=== PATIENT | female | born 1940 | race Caucasian/White ===

== ENCOUNTER → 2017-07-29 10:41 | Outpatient (CLI) | payer MEDICARE, OTHER, SELFPAY ==
--- NOTE | 2017-07-29 10:46 | MM_ITS ---
. MM Dig screening mamm BI w/CAD CAD Screening ORDERING PHYSICIAN : Des Chan MD PATIENT AGE: 77 years GENDER: Female COMPARISON: Previous mammograms: October 2014,. May 2016 INDICATION: No hormones no new complaints previous needle biopsy left breast Family history. Mother with breast cancer. TECHNIQUE: Standard CC and MLO images were obtained. R2 CAD reviewed. FINDINGS: Minimal fibroglandular elements bilaterally to the lower density breast. Prior films are helpful and supportive stability with no dominant mass nor suspicious calcifications of significant concern no significant change. Mole markers placed bilaterally Right breast.: Unremarkable Left breast. The metallic clip at the lateral left breast from previous stereotactic biopsy is again noted. Minimal nodularity just lateral to this is stable and unchanged 2014 likely small intramammary node. The generous size benign appearing fatty containing axillary lymph nodes bilaterally appears similar to previous studies ... IMPRESSION: ... Stable bilateral mammogram.... No significant new findings either breast Follow-up in one year recommended BI-RADS Category: 1 Negative RECOMMENDED FOLLOW-UP: 1YR - 1 YEAR FOLLOW-UP (A letter has been sent to the patient regarding results of the study.)
== END ==
PROVIDERS: PCP Nurse Practitioner Family; Visit Provider Internal Medicine Adolescent Medicine
DX: Z12.31 Encounter for screening mammogram for malignant neoplasm of breast (principal)
CPT/HCPCS: 77067

== ENCOUNTER → 2017-12-16 08:16 | Outpatient (CLI) | payer MEDICARE, OTHER, SELFPAY ==
[2017-12-16 08:44] LABS: Hemoglobin A1C 6.3 % (0.0-7.0)
[2017-12-16 09:42] LABS: Alanine Aminotransferase 44 U/L (12-78); Albumin Level 3.4 gm/dL (3.4-5.0); Albumin/Globulin Ratio 1.4 (1.1-1.8); Alkaline Phosphatase 76 U/L (46-116); Aspartate Amino Transferase 18 U/L (15-37); Bilirubin,Total 0.7 mg/dL (0.2-1.0); Blood Urea Nitrogen 10 mg/dL (7-18); Calcium 8.9 mg/dL (8.5-10.1); Carbon Dioxide 31 mmol/L (21.0-32.0); Chol/HDL Ratio 2.6 (1-3.5); Cholesterol 155 mg/dL (140-200); Creatinine,Serum 0.74 mg/dL (0.55-1.02); Estimated Glomerular Filt Rate 76 ml/min (>60); GFR (African American) 92 ML/MIN (>60); Globulin 2.5 gm/dl (1.3-3.2); Glucose 119 mg/dL (74-106); HDL Cholesterol 59 mg/dL (29-89); LDL Cholesterol 73 mg/dL (0-130); Total Protein,Serum 5.9 gm/dL (6.4-8.2); Triglycerides 117 mg/dL (30-200); VLDL Cholesterol 23 mg/dL (0-40)
[2017-12-16 14:58] LABS: Anion Gap 7.5 mEq/L (5-15); Chloride 109 mmol/L (98-107); Potassium 4.5 mmoL/L (3.5-5.1); Sodium 143 mmol/L (136-145)
[2017-12-18 07:50] LABS: Vitamin D 25 Hydroxy 31.6 ng/mL (30.0-100.0)
== END ==
PROVIDERS: PCP Nurse Practitioner Family; Visit Provider Nurse Practitioner Family
DX: R73.9 Hyperglycemia, unspecified (principal); E78.1 Pure hyperglyceridemia; M85.80 Other specified disorders of bone density and structure, unspecified site
CPT/HCPCS: 36415; 80053; 80061; 82652; 83036

== ENCOUNTER → 2018-07-31 10:07 | Outpatient (CLI) | payer MEDICARE, OTHER, SELFPAY ==
--- NOTE | 2018-07-31 10:10 | MM_ITS ---
MM Dig screening mamm BI w/CAD ORDERING PHYSICIAN : Alecia Knight APRN PATIENT AGE: 78 years GENDER: Female COMPARISON: Bilateral digital mammogram June 2017, October 2014Mar2016. Left mammogram May 2015. INDICATION: Routine screening mammogram. No hormones. No new complaints. Previous breast biopsy on left. Family history.: Mother with breast cancer. TECHNIQUE: Standard CC and MLO images were obtained. R2 CAD reviewed. FINDINGS: Minimal residual fibroglandular elements. Low-density breast, moderate generalized fatty replacement . No dominant mass no suspicious mass. No suspicious calcifications. RIGHT BREAST: No new areas concern LEFT BREAST:No new areas of concern. Metallic marker clip from previous percutaneous biopsy again noted upper outer quadrant left breast Skin mole markers of the left again noted but no new findings. IMPRESSION: Stable bilateral mammogram, with no new areas of concern. . Follow-up in one year recommended Lower density breast. Minimal fibroglandular elements BI-RADS Category: 1 Negative RECOMMENDED FOLLOW-UP: 1YR 1 YEAR FOLLOW-UP (A letter has been sent to the patient regarding results of the study.)
--- NOTE | 2018-07-31 10:12 | CI_ITS ---
Cerebrovascular Exam IMPRESSIONS 1. The bilateral vertebral arteries are patent with normal antegrade flow. 2. Study suggests 20-49%, 50-69% stenosis involving the right internal carotid artery. 3. Study suggests 20-49% stenosis involving the left internal carotid artery. No change from the study of 05-Jan-2016. Carotid duplex study. Complete study and Doppler flow study including spectral analysis, color and jang scale imaging. Location: Vascular laboratory. Patient status: Outpatient. Tables: Arterial flow: + +--------+--------+ Location V s V ed + +--------+--------+ Right CCA - proximal 99.8cm/s 16.5cm/s + +--------+--------+ Right CCA - distal 90.4cm/s 20.4cm/s + +--------+--------+ Right ECA 128cm/s -------- + +--------+--------+ Right ICA - proximal 123cm/s 29.5cm/s + +--------+--------+ Right ICA - mid 124cm/s 27.4cm/s + +--------+--------+ Right ICA - distal 70.7cm/s 24.4cm/s + +--------+--------+ Right vertebral 53.4cm/s -------- + +--------+--------+ Left CCA - proximal 114cm/s 25.1cm/s + +--------+--------+ Left CCA - distal 105cm/s 25.9cm/s + +--------+--------+ Left ECA 92.9cm/s -------- + +--------+--------+ Left ICA - proximal 97.4cm/s 25.1cm/s + +--------+--------+ Left ICA - mid 83.6cm/s 27.4cm/s + +--------+--------+ Left ICA - distal 77.8cm/s 23.6cm/s + +--------+--------+ Left vertebral 49cm/s -------- + +--------+--------+ Velocity ratios: + + + + + + Right, V sys Right, V ed Left, V sys Left, V ed + + + + + + Max ICA/dist CCA 1.37 1.45 0.93 1.06 + + + + + + (Report amended ) Electronically signed by: Ever Christine [id number]
== END ==
PROVIDERS: PCP Nurse Practitioner Family; Visit Provider Nurse Practitioner Family
DX: Z12.31 Encounter for screening mammogram for malignant neoplasm of breast (principal); I65.23 Occlusion and stenosis of bilateral carotid arteries; M85.89 Other specified disorders of bone density and structure, multiple sites
CPT/HCPCS: 77067; 93880

== ENCOUNTER → 2018-08-04 08:16 | Outpatient (CLI) | payer MEDICARE, OTHER, SELFPAY ==
--- NOTE | 2018-08-04 08:24 | XR_ITS ---
XR DEXA axial skeleton HISTORY: ITS.REASON: OSTEOPENIA ORDERING PHYSICIAN: Alecia Knight APRN PATIENT AGE: 78 years COMPARISON: 06/04/2016 FINDINGS: The BMD measured at the Total right femoral neck is 0.808 g/cm squared with a T score of -1.6. This is considered Osteopenic according to the World Health Organization criteria. Fracture risk is Moderate. Treatment is advised. L1 L4 density has a T score of -0.5. This is increased by 3.6%. Hip density has increased by 1% IMPRESSION: Osteopenia with moderate fracture risk. Treatment is advised. Suggest follow-up exam July 2020
[2018-08-04 09:11] LABS: Hemoglobin A1C 6.1 % (0.0-7.0)
[2018-08-04 09:37] LABS: Alanine Aminotransferase 38 U/L (12-78); Albumin Level 3.5 gm/dL (3.4-5.0); Albumin/Globulin Ratio 1.2 (1.1-1.8); Alkaline Phosphatase 84 U/L (46-116); Anion Gap 11.5 mEq/L (5-15); Aspartate Amino Transferase 18 U/L (15-37); Bilirubin,Total 0.5 mg/dL (0.2-1.0); Blood Urea Nitrogen 14 mg/dL (7-18); Calcium 9.2 mg/dL (8.5-10.1); Carbon Dioxide 29 mmol/L (21.0-32.0); Chloride 106 mmol/L (98-107); Chol/HDL Ratio 3.5 (1-3.5); Cholesterol 191 mg/dL (140-200); Creatinine,Serum 0.79 mg/dL (0.55-1.02); Estimated Glomerular Filt Rate 70 ml/min (>60); GFR (African American) 85 ML/MIN (>60); Globulin 2.9 gm/dl (1.3-3.2); Glucose 103 mg/dL (74-106); HDL Cholesterol 54 mg/dL (29-89); LDL Cholesterol 120 mg/dL (0-130); Potassium 4.5 mmoL/L (3.5-5.1); Sodium 142 mmol/L (136-145); Total Protein,Serum 6.4 gm/dL (6.4-8.2); Triglycerides 87 mg/dL (30-200); VLDL Cholesterol 17 mg/dL (0-40)
== END ==
PROVIDERS: Visit Provider Nurse Practitioner Family
DX: R73.03 Prediabetes (principal); E78.1 Pure hyperglyceridemia; M85.89 Other specified disorders of bone density and structure, multiple sites; I65.23 Occlusion and stenosis of bilateral carotid arteries; Z12.31 Encounter for screening mammogram for malignant neoplasm of breast
CPT/HCPCS: 36415; 77080; 80053; 80061; 83036

== ENCOUNTER → 2019-08-03 09:11 | Outpatient (CLI) | payer MEDICARE, OTHER, SELFPAY ==
--- NOTE | 2019-08-03 09:22 | MM_ITS ---
PROCEDURE: MM DIG SCREENING MAMM BI W/CAD Digital Breast Tomosynthesis Included CLINICAL INDICATION: SCREENING ANNUAL There is a history of breast cancer in the patient's mother. There is a previous biopsy left breast for benign disease. COMPARISON: [facility] DIG MAMM-SCREEN RAFA W/CAD from 06/04/2016 [facility] MM Dig screening mamm BI w/CAD from 07/29/2017 DIG MAMM-SCREEN RAFA from 07/31/2018 TECHNIQUE: Standard CC and MLO images and 3D Tomosynthesis was obtained. R2 CAD reviewed. FINDINGS: Scattered fibroglandular densities are seen throughout both breasts. There are mole markers on each breast. There are tiny benign appearing nodular densities near the axillary tail right breast which are stable. There is a biopsy clip left breast. There is a benign-appearing calcification left breast. There is no suspicious lesion and no suspicious microcalcifications. There are fatty replaced nodes in both axilla. IMPRESSION: Fibrofatty parenchyma with no suspicious lesions seen BI-RAD Category: 2 Benign Finding(s) FOLLOW-UP: 1YR 1 Year Follow-up (A letter has been sent to the patient regarding results of the study.) Dictated by: Dr. Arsalan Zelaya MD 08/04/2019 15:[address] Arsalan Zelaya MD in [place] 08/04/2019 15:43
== END ==
PROVIDERS: PCP Nurse Practitioner Family; Visit Provider Nurse Practitioner Family
DX: Z12.31 Encounter for screening mammogram for malignant neoplasm of breast (principal)
CPT/HCPCS: 77063; 77067

== ENCOUNTER → 2019-08-13 09:52 | Outpatient (POV) | payer MEDICARE, OTHER, SELFPAY | PROVIDERS: PCP Audiologist; Visit Provider Audiologist | DX: Z00.00 Encounter for general adult medical examination without abnormal findings (principal) ==

== ENCOUNTER → 2020-07-07 09:03 | Outpatient (POV) | payer MEDICARE, OTHER, SELFPAY | PROVIDERS: Visit Provider Audiologist | DX: Z00.00 Encounter for general adult medical examination without abnormal findings (principal) ==

== ENCOUNTER → 2020-08-12 09:10 | Outpatient (CLI) | payer MEDICARE, OTHER, SELFPAY ==
--- NOTE | 2020-08-12 09:14 | MM_ITS ---
PROCEDURE INFORMATION: Exam: MG Screening 3D Mammography Exam date and time: 08/12/2020 9:14 AM Age: 80 years old Clinical indication: Encounter for screening mammogram for malignant neoplasm of breast . Family history of breast carcinoma TECHNIQUE: Imaging protocol: Screening tomosynthesis and 2D mammography including computer-aided detection (CAD) when performed. COMPARISON: 1. MG MM DIG SCREENING MAMM BI W/CAD 08/03/2019 9:34 AM 2. MG DIG MAMM-SCREEN RAFA 07/31/2018 10:55 AM 3. MG [facility] MM Dig screening mamm BI w/CAD 07/29/2017 11:06 AM 4. MG [facility] DIG MAMM-SCREEN RAFA W/CAD 06/04/2016 9:06 AM FINDINGS: MAMMOGRAPHY: Breast composition: There are scattered areas of fibroglandular density. Mass: No new suspicious masses. Architectural distortion: No suspicious distortion. Calcifications: No suspicious calcifications. Asymmetric density: None. Skin thickening: None. Axillary adenopathy: None. IMPRESSION: No mammographic evidence of malignancy. Annual screening is recommended unless otherwise clinically indicated. ASSESSMENT: BI-RADS Category 1: Negative
== END ==
PROVIDERS: PCP Nurse Practitioner Family; Visit Provider Nurse Practitioner Family
DX: Z12.31 Encounter for screening mammogram for malignant neoplasm of breast (principal)
CPT/HCPCS: 77063; 77067

== ENCOUNTER → 2021-04-13 11:02 | Outpatient (CLI) | payer MEDICARE, OTHER, SELFPAY ==
[2021-04-13 11:48] LABS: Chloride 103 mmol/L (98-107); Potassium 4.5 mmoL/L (3.5-5.1); Sodium 140 mmol/L (136-145)
[2021-04-13 11:50] LABS: Blood Urea Nitrogen 14 mg/dl (7-17); Estimated Glomerular Filt Rate 69 ml/min (>60); GFR (African American) 83 ML/MIN (>60)
[2021-04-13 11:51] LABS: Alanine Aminotransferase 31 U/L (12-78); Albumin/Globulin Ratio 1.7 (1.1-1.8); Alkaline Phosphatase 83 U/L (38-126); Anion Gap 9.5 mEq/L (5-15); Aspartate Amino Transferase 33 U/L (14-36); Bilirubin,Total 0.7 mg/dl (0.2-1.3); Calcium 9.5 mg/dl (8.4-10.2); Carbon Dioxide 32 mmol/L (22.0-30.0); Cholesterol 232 mg/dl (140-200); Globulin 2.4 g/dL (1.3-3.2); Glucose 110 mg/dl (74-100); Total Protein,Serum 6.4 g/dl (6.3-8.2); Triglycerides 138 mg/dl (30-150); VLDL Cholesterol 28 mg/dL (0-40)
[2021-04-13 11:52] LABS: Chol/HDL Ratio 4.6 (1-3.5); HDL Cholesterol 50 mg/dl (40-60)
[2021-04-13 12:02] LABS: Direct LDL Cholesterol 146.19 mg/dL (100-129)
[2021-04-13 12:09] LABS: 25-OH Vitamin D, Total 14.1 ng/mL (30-100)
[2021-04-13 15:11] LABS: Hemoglobin A1C 6.1 % (4.0-6.0)
== END ==
PROVIDERS: Visit Provider Nurse Practitioner Family
DX: I65.23 Occlusion and stenosis of bilateral carotid arteries (principal); E78.1 Pure hyperglyceridemia; R73.03 Prediabetes; M85.89 Other specified disorders of bone density and structure, multiple sites
CPT/HCPCS: 36415; 80053; 80061; 82306; 83036

== ENCOUNTER → 2021-08-15 07:59 | Outpatient (CLI) | payer MEDICARE, OTHER, SELFPAY ==
--- NOTE | 2021-08-15 | CA_ITS ---
FINAL REPORT TECHNIQUE: Color Doppler, duplex Doppler and jang scale sonography of the bilateral neck arterial vasculature was performed. Velocities were measured in the carotid arteries. Stenosis evaluation based on the validated velocity criteria. CLINICAL HISTORY: HTN, HLD FINDINGS: The peak systolic velocity of the right common carotid artery is 103 cm/s. The peak systolic velocity of the right internal carotid artery is 162 cm/s and end diastolic velocity 41 cm/s. A small amount of plaque is present. The right external carotid artery is patent. The right vertebral artery is patent with antegrade flow. ICA/CCA ration: 1.8 The peak systolic velocity of the left common carotid artery is 113 cm/s. The peak systolic velocity of the left internal carotid artery is 124 cm/s and end diastolic velocity 32 cm/s. A small amount of plaque is present. The left external carotid artery is patent.The left vertebral artery is patent with antegrade flow. ICA/CCA ration: 1.5 IMPRESSION: Less than 50% bilateral carotid stenoses. Bilateral patent vertebral arteries with antegrade flow. If indicated, CTA or MRA could further evaluate. Reviewed, Interpreted and Dictated by Luis Fernando Meza III, MD Transcribed by Gerardo Manzo Authenticated by Luis Fernando Meza III, MD on 08/15/2021 01:36:05 PM [facility]
--- NOTE | 2021-08-15 08:03 | MM_ITS ---
PROCEDURE INFORMATION: Exam: MG Bilateral Screening 3D Mammography Exam date and time: 08/15/2021 8:31 AM Age: 81 years old Clinical indication: Screening examination TECHNIQUE: Imaging protocol: Bilateral Screening tomosynthesis and 2D mammography including computer-aided detection (CAD) when performed. COMPARISON: 1. MG MM DIG SCREENING MAMM BI W/CAD 08/12/2020 9:25 AM 2. MG MM DIG SCREENING MAMM BI W/CAD 08/03/2019 9:34 AM FINDINGS: MAMMOGRAPHY: Breast composition: There are scattered areas of fibroglandular density. Mass: None. Architectural distortion: None. Calcifications: No suspicious calcifications. Asymmetric density: None. Skin thickening: None. Axillary adenopathy: None. IMPRESSION: No mammographic evidence of malignancy. Annual screening is recommended unless otherwise clinically indicated. ASSESSMENT: BI-RADS Category 1: Negative
--- NOTE | 2021-08-15 08:03 | XR_ITS ---
FINAL REPORT TECHNIQUE: Bone mineral density was calculated of the lumbar spine and hip. CLINICAL HISTORY: post menopausal FINDINGS: Using L1-4, the bone mineral density of the spine is 0.944 g/cm2, corresponding to T-score of -0.9. Using the left hip, the bone mineral density of the femoral neck is 0.660 g/cm2, corresponding to a T-score of -1.7. NOTE: T-score: Standard deviation compared with peak bone mass of young adult mean. *Following the recommendations of the International Society of Bone densitometry, classification of hip BMD is based on the lower of two T-scores; total hip or femoral neck. IMPRESSION: Diminished bone mineral density of the left hip consistent with osteopenia. Normal bone mineral density of the lumbar spine. FRAX data: 10 year fracture risk for major osteoporotic fracture is 19% Reviewed, Interpreted and Dictated by Luis Fernando Meza III, MD Transcribed by Gerardo Manzo Authenticated by Luis Fernando Meza III, MD on 08/16/2021 08:06:51 AM [facility]
== END ==
PROVIDERS: PCP Nurse Practitioner Family; Visit Provider Nurse Practitioner Family
DX: Z12.31 Encounter for screening mammogram for malignant neoplasm of breast (principal); Z78.0 Asymptomatic menopausal state; I65.23 Occlusion and stenosis of bilateral carotid arteries
CPT/HCPCS: 77063; 77067; 77080; 93880

== ENCOUNTER 2022-01-23 10:28 | Day surgery (SDC) | payer MEDICARE, OTHER, SELFPAY ==
[2022-01-18 11:53] VITALS: BMI 35.9
[2022-01-23] VITALS (7 sets, daily range): BP systolic 116–156; BP diastolic 57–85; PULSE 51–57; RESP 16–20; TEMP 36.3–36.4; O2SAT 98–100
== END 2022-01-23 13:46 | disposition home or self-care (01) ==
LOC: OR 10:30
PROVIDERS: PCP Nurse Practitioner Family; Visit Provider Ophthalmology
DX: H25.813 Combined forms of age-related cataract, bilateral (principal); Z79.899 Other long term (current) drug therapy
CPT/HCPCS: 66984; V2632

== ENCOUNTER 2022-02-06 10:30 | Day surgery (SDC) | payer MEDICARE, OTHER, SELFPAY ==
[2022-02-01 13:51] VITALS: BMI 34.3
[2022-02-06] VITALS (7 sets, daily range): BP systolic 137–191; BP diastolic 64–77; PULSE 52–57; RESP 16–18; TEMP 36.1–36.3; O2SAT 100
== END 2022-02-06 13:48 | disposition home or self-care (01) ==
LOC: OR 10:31
PROVIDERS: PCP Nurse Practitioner Family; Visit Provider Ophthalmology
DX: H25.813 Combined forms of age-related cataract, bilateral (principal)
CPT/HCPCS: 66984; V2632

== ENCOUNTER → 2022-08-23 09:41 | Outpatient (CLI) | payer MEDICARE, OTHER, SELFPAY ==
--- NOTE | 2022-08-23 09:44 | MM_ITS ---
PROCEDURE INFORMATION: Exam: MG Bilateral Screening 3D Mammography Exam date and time: 08/23/2022 9:39 AM Age: 82 years old Clinical indication: Screening mammogram TECHNIQUE: Imaging protocol: Bilateral Screening tomosynthesis and 2D mammography including computer-aided detection (CAD) when performed. COMPARISON: 1. MG MM DIG SCREENING MAMM BI W/CAD 08/15/2021 8:31 AM 2. MG MM DIG SCREENING MAMM BI W/CAD 08/12/2020 9:25 AM 3. MG MM DIG SCREENING MAMM BI W/CAD 08/03/2019 9:34 AM 4. MG DIG MAMM-SCREEN RAFA 07/31/2018 10:55 AM FINDINGS: MAMMOGRAPHY: Breast composition: There are scattered areas of fibroglandular density. Mass: None. Architectural distortion: No new or suspicious architectural distortion. Calcifications: No new or suspicious calcifications are present Asymmetric density: No new or suspicious asymmetric density is present Skin thickening: None. Axillary adenopathy: None. IMPRESSION: No mammographic evidence of malignancy. Recommend annual screening mammography unless otherwise clinically indicated. ASSESSMENT: BI-RADS category 1: Negative
== END ==
PROVIDERS: PCP Nurse Practitioner Family; Visit Provider Nurse Practitioner Family
DX: Z12.31 Encounter for screening mammogram for malignant neoplasm of breast (principal)
CPT/HCPCS: 77063; 77067

== ENCOUNTER 2023-07-11 12:26 | Outpatient (CLI) | payer MEDICARE, OTHER, SELFPAY ==
--- NOTE | 2023-07-11 12:31 | XR_ITS ---
FINAL REPORT CLINICAL HISTORY: CONTUSION OF RT RING FINGER FINDINGS: Right hand Three views were obtained. There is no acute fracture or dislocation. There are mild degenerative changes. No soft tissue abnormality is identified. IMPRESSION: No acute process. Reviewed, Interpreted and Dictated by Luis Fernando Meza III, MD Transcribed by Mary Eugene Authenticated and [facility]
== END 2023-07-11 23:59 ==
LOC: RAD 12:28
PROVIDERS: PCP Nurse Practitioner Family; Visit Provider Nurse Practitioner Family
DX: M79.641 Pain in right hand (principal); S60.041A Contusion of right ring finger without damage to nail, initial encounter
CPT/HCPCS: 73130

== ENCOUNTER 2023-08-06 11:39 | Outpatient (CLI) | payer MEDICARE, OTHER, SELFPAY | END 2023-08-06 23:59 | disposition home or self-care (01) | LOC: RT 11:40 | PROVIDERS: PCP Nurse Practitioner Family; Visit Provider Nurse Practitioner Family | DX: G45.9 Transient cerebral ischemic attack, unspecified (principal) | CPT/HCPCS: 93225; 93226 ==

== ENCOUNTER 2023-08-20 14:31 | Outpatient (CLI) | payer MEDICARE, OTHER, SELFPAY ==
[2023-08-20 15:45] LABS: Blood Urea Nitrogen 11 mg/dl (7-17)
[2023-08-20 15:46] LABS: Estimated Glomerular Filt Rate 80 ml/min (>60); GFR (African American) 96 ML/MIN (>60)
== END 2023-08-20 23:59 | disposition home or self-care (01) ==
LOC: LAB 14:33
PROVIDERS: PCP Nurse Practitioner Family; Visit Provider Nurse Practitioner Family
DX: Z01.812 Encounter for preprocedural laboratory examination (principal)
CPT/HCPCS: 36415; 82565; 84520

== ENCOUNTER 2023-08-21 08:01 | Outpatient (CLI) | payer MEDICARE, OTHER, SELFPAY ==
--- NOTE | 2023-08-21 08:05 | MR_ITS ---
FINAL REPORT CLINICAL HISTORY: TIA 08/04/23 f/u COMPARISON: None FINDINGS: Multi planar MR imaging was obtained through the brain without contrast. The midline structures appear intact. There is no evidence of Chiari malformation. On T2 and flair axial images reveals moderate abnormal signal in the deep white matter, in this age group likely chronic ischemic microvascular disease. There is no supratentorial restricted diffusion. However, there is a tiny focus of restricted diffusion in the anterior facundo best seen on image #12 of series 3.2, with slightly decreased signal on the ADC map. This may represent a tiny acute CVA. Lobular mucoperiosteal thickening is present in the maxillary sinuses. The seventh and eighth nerve root complexes are intact. IMPRESSION: Moderate abnormal signal in the deep white matter, in this age group likely chronic ischemic microvascular disease. There is a tiny focus of restricted diffusion in the anterior facundo as described above, that may represent a tiny infarct. Clinical correlation is suggested. Reviewed, Interpreted and Dictated by Reno Wadsworth MD Transcribed by Chantell Batres Authenticated and [facility]
--- NOTE | 2023-08-21 09:00 | CT_ITS ---
FINAL REPORT TECHNIQUE: Multiple axial CT angiography images were performed from the thoracic inlet through the skull base before and during IV contrast administration. This study was performed with techniques to keep radiation doses as low as reasonably achievable (ALARA). Individualized dose reduction techniques using automated exposure control or adjustment of mA and/or kV according to the patient's size were employed. CLINICAL HISTORY: TIA COMPARISON: None FINDINGS: RIGHT CAROTID: No significant stenosis is seen of the cervical common or internal carotid artery. LEFT CAROTID: No significant stenosis seen of the cervical common or internal carotid artery. Mild calcification is present in the left internal carotid artery. VERTEBRALS: The vertebral arteries are patent. No significant stenosis is present. IMPRESSION: No significant arterial abnormality. Reviewed, Interpreted and Dictated by Reno Wadsworth MD Transcribed by Chantell Batres Authenticated and . [facility]
--- NOTE | 2023-08-21 09:17 | CT_ITS ---
FINAL REPORT TECHNIQUE: thin section axial CT with and without IV contrast supplemented with multiplanar 3-D reconstruction of the head. This study was performed with techniques to keep radiation doses as low as reasonably achievable, (ALARA)individualized dose reduction techniques using automated exposure control or adjustment of mA and/or kV according to the patient's size were employed. CLINICAL HISTORY: TIA COMPARISON: None FINDINGS: HEAD CT: The ventricles are normal in size. There is no evidence of hemorrhage. No masses are identified. No extra-axial fluid is seen. The sinuses are normal. CTA: The cranial circulation is unremarkable. There is no significant stenosis, aneurysm or occlusion. IMPRESSION: No acute process. Reviewed, Interpreted and Dictated by Reno Wadsworth MD Transcribed by Chantell Batres Authenticated and [facility]
[2023-08-21] MEDS: 0.9 % SODIUM CHLORIDE 50 ML VIAL IV (09:44)
[2023-08-21] MEDS: SODIUM CHLORIDE 0.9% 10ML SYR (RAD ONLY) 10 ML IV (09:45)
[2023-08-21] MEDS: IOPAMIDOL-370 (76%);100ML BOTTLE 100 ML IV (09:45)
== END 2023-08-21 23:59 | disposition home or self-care (01) ==
LOC: RAD 08:01
PROVIDERS: PCP Nurse Practitioner Family; Visit Provider Nurse Practitioner Family
DX: G45.8 Other transient cerebral ischemic attacks and related syndromes (principal)
CPT/HCPCS: 70496; 70498; 70551; Q9967

== ENCOUNTER 2023-09-03 09:14 | Outpatient (CLI) | payer MEDICARE, OTHER, SELFPAY ==
--- NOTE | 2023-09-03 09:19 | CA_ITS ---
APPROVED REPORT EXAM: Comprehensive 2D, Doppler, and color-flow Echocardiogram [employer] Worker: Ria Thayer RT(R) Ht: 4 ft 10 in Wt: 170lbs BSA: 1.70 BP: 140/75 mmHg Indications: TIA, fatigue, edema, HTN, CADENA, obesity, hyperlipidemia, family history of HD(father). Ordered as a bubble study due to hx of TIA's Echo Enhancing Agent Indication: Rule out Shunt Agent(s) / Amount(s) Used: Agitated Saline 20 cc 2D Dimensions LVEF (Leonardo's) 58.40 % F: 54 - 74 LV Volume 69.50 mL F: 46 - 106 LV Volume Index 40.9 mL/m2 F: 29 - 61 LA Volume 33.40 mL LA Volume Index 19.65 mL/m2 (M/F) 16-34 EF AP4 59.70 % EF AP2 56.5 % EF BP 58.4 % GL Strain -17.9 % M-Mode Dimensions RVDd 2.61 cm (0.9-2.6) LA Diam 3.59 cm (1.9-4.0) LVDd 4.62 cm (3.5-5.7) LVDs 2.47 cm (3.5-5.7) IVSd 0.75 cm (0.6-1.1) PWd 0.82 cm (0.6-1.1) EF (Teich) 77.90% FS 46.50% EDV (Teich) 98.30 mL ESV (Teich) 21.70 mL LV Diastology E Decel Time 220 (160-240 msec) E/A Ratio 0.7 Mitral Valve MV E Max Dre. 73.0 (40-130 cm/s) MV A Velocity 108.0 (40-130 cm/s) E/A Ratio 0.67 MV PHT 64.0 ms Left Ventricle The left ventricle is normal size. The left ventricular systolic function is normal. The left ventricular ejection fraction is within the normal range. There is increased LV wall thickness. There is normal LV segmental wall motion. Transmitral Doppler flow pattern suggests impaired LV relaxation. LVEF is 55%. Right Ventricle The right ventricle is normal size. The right ventricular systolic function is normal. Atria The left atrium size is normal. The right atrium size is normal. There is no Doppler evidence of interatrial shunt. Agitated saline administration at rest and with Valsalva demonstrates no evidence of interatrial shunt. Aortic Valve The aortic valve is mildly thickened. Mild aortic regurgitation. There is no aortic valvular stenosis. Mitral Valve The mitral valve leaflets are mildly thickened. Mild mitral regurgitation. No evidence of mitral valve stenosis. Tricuspid Valve The tricuspid valve leaflets are thin and pliable. Mild tricuspid regurgitation. RVSP is normal. Pulmonic Valve The pulmonary valve is normal in structure. Trace pulmonic regurgitation. Great Vessels The aortic root is normal in size. The ascending aorta is normal in size. IVC is normal in size and collapses >50% with inspiration. Pericardium There is no pericardial effusion. Other Information Study Quality: Fair Conclusion Normal biventricular systolic function. Mild AI, mild MR, mild TR. No Doppler evidence of interatrial shunt. Agitated saline administration at rest and with Valsalva demonstrates no evidence of interatrial shunt. Electronically signed by : Naheed Bowen MD 09/07/2023 21:00:33
== END 2023-09-03 23:59 | disposition home or self-care (01) ==
PROVIDERS: PCP Nurse Practitioner Family; Visit Provider Nurse Practitioner Family
DX: G45.9 Transient cerebral ischemic attack, unspecified (principal)
CPT/HCPCS: 93306

== ENCOUNTER 2023-09-11 10:16 | Outpatient (CLI) | payer MEDICARE, OTHER, SELFPAY | END 2023-09-11 23:59 | disposition home or self-care (01) | LOC: RT 10:17 | PROVIDERS: PCP Nurse Practitioner Family; Visit Provider Nurse Practitioner Family | DX: G45.9 Transient cerebral ischemic attack, unspecified (principal) | CPT/HCPCS: 93270; 93272 ==

== ENCOUNTER 2023-09-16 15:54 | Outpatient (CLI) | payer MEDICARE, OTHER, SELFPAY ==
--- NOTE | 2023-09-16 15:58 | MM_ITS ---
PROCEDURE INFORMATION: Exam: MG Bilateral Screening 3D Mammography Exam date and time: 09/16/2023 3:50 PM Age: 83 years old Clinical indication: Screening examination TECHNIQUE: Imaging protocol: Bilateral Screening tomosynthesis and 2D mammography including computer-aided detection (CAD) when performed. COMPARISON: 1. MG MM DIG SCREENING MAMM BI W/CAD 08/23/2022 9:39 AM 2. MG MM DIG SCREENING MAMM BI W/CAD 08/15/2021 8:31 AM FINDINGS: MAMMOGRAPHY: Breast composition: There are scattered areas of fibroglandular density. Mass: None. Architectural distortion: None. Calcifications: No suspicious calcifications. Asymmetric density: None. Skin thickening: None. Axillary adenopathy: None. IMPRESSION: No mammographic evidence of malignancy. Annual screening is recommended unless otherwise clinically indicated. ASSESSMENT: BI-RADS Category 1: Negative
== END 2023-09-16 23:59 | disposition home or self-care (01) ==
LOC: RAD 15:55
PROVIDERS: Visit Provider Nurse Practitioner Family
DX: Z12.31 Encounter for screening mammogram for malignant neoplasm of breast (principal)
CPT/HCPCS: 77063; 77067

== ENCOUNTER 2024-05-10 09:38 | Emergency (ER) | payer MEDICARE, OTHER, SELFPAY ==
[2024-05-10 09:40] VITALS: BP 180/84; PULSE 64; RESP 19; TEMP 36.9; O2SAT 97; BMI 27.4
[2024-05-10 09:45] VITALS: BP 208/73; PULSE 62; O2SAT 96
--- NOTE | 2024-05-10 09:46 | PC.NURSE ---
DR BENJAMIN AT BEDSIDE
--- NOTE | 2024-05-10 09:55 | CT_ITS ---
PROCEDURE INFORMATION: Exam: CT Head Without Contrast Exam date and time: 05/10/2024 10:41 AM Age: 84 years old Clinical indication: Other: L retroocular headache TECHNIQUE: Imaging protocol: Computed tomography of the head without contrast. Radiation optimization: All CT scans at this facility use at least one of these dose optimization techniques: automated exposure control; mA and/or kV adjustment per patient size (includes targeted exams where dose is matched to clinical indication); or iterative reconstruction. COMPARISON: 1. CT ANGIO HEAD 08/21/2023 9:15 AM 2. MR HEAD/BRAIN WO CON 08/21/2023 8:10 AM FINDINGS: Brain: No hemorrhages. 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 Moderate amount of low-density in the white matter both cerebral hemispheres without mass effect. No other intra-axial or extra-axial lesions or masses. No midline shift. Cerebral ventricles: No ventriculomegaly. Paranasal sinuses: Mucous retention cysts in the right maxillary sinus. Mastoid air cells: Visualized mastoid air cells are well aerated. Orbital cavities: No intra orbital abnormalities. Bones: No acute fractures or bone lesions. Soft tissues: No abnormalities. IMPRESSION: 1. No acute intracranial abnormalities. No interval changes since 08/21/2023. 2. Moderate white matter microvascular disease. 3. 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
--- NOTE | 2024-05-10 09:57 | ED_ITS ---
Discharge Plan Disposition Patient Disposition: Home, Self-Care Chief Complaint: Headache Prescriptions Prescriptions: No Action losartan 25 mg tablet 25 mg PO DAILY Ocuvite Tablet 1 tab PO DAILY cholecalciferol (vitamin D3) [Vitamin D3] 50 mcg (2,000 unit) Tablet 50 mcg PO WEEKLY rosuvastatin 20 mg tablet 20 mg PO DAILY Patient Comments: TAKE 1 TABLET BY MOUTH DAILY aspirin 81 mg Capsule 81 mg PO DAILY Referrals Follow up/Referrals: Alecia Knight APRN [Primary Care Provider] - See instructions Activity Restrictions/Add. Instructions Additional Instructions/Restrictions: At this time it was felt you are safe to be discharged home. If new or worsening symptoms please do not hesitate to return the emergency department. If your symptoms persist longer than 5 to 10 days please follow-up with your family doctor for continued evaluation as you may need additional imaging or chronic medication management. Clinical Impressions Clinical Impression: Headache Print Language Print Language: Portuguese Discharge ED Provider: Sagar Hollis General Adult HPI General Chief complaint: Headache Stated complaint: headache, nauseous Time Seen by Provider: 05/10/24 09:41 History of Present Illness HPI narrative: Patient is 84-year-old female with past medical history of previous headaches not on control therapy that occurred between once a month and once a year who presents emergency department for evaluation of headache. Onset was acute, over the last 48 to 72 hours, left-sided, retro-ocular. Her baseline headaches are in the same location and sometimes her right posterior. No falls. No anticoagulants. No vision changes. No difficulty moving extremities or slurred speech. Not worse with light. Due to persistent symptoms she presents here for continued evaluation. Related Data Home Medications ?Medication ?Instructions ?Recorded ?Confirmed cholecalciferol (vitamin D3) 50 50 mcg PO WEEKLY Supplement 01/23/22 05/10/24 mcg (2,000 unit) tablet (Vitamin D3) losartan 25 mg tablet 25 mg PO DAILY HTN 01/23/22 05/10/24 vitamin A-vitamin C-vit E-min 1 tab PO DAILY eyes 01/23/22 05/10/24 tablet aspirin 81 mg capsule 81 mg PO DAILY heart healthly 02/01/22 05/10/24 rosuvastatin 20 mg tablet 20 mg PO DAILY 05/10/24 05/10/24 Allergies Allergy/AdvReac Type Severity Reaction Status Date / Time No Known Allergies Allergy Verified 05/10/24 10:07 PFSH PFSH Disclaimer: The information contained in this section may have been updated after the patient was seen, as this information can be updated by other users. Medical History (Updated 05/10/24 @ 11:29 by Sagar Hollis MD) Uses hearing aid Migraine History of cataract Allergies Edema Hyperlipidemia Hypertension Surgical History Hx of cataract surgery History of cholecystectomy Family History Mother Family history of breast cancer Father Family history of brain cancer Social History Smoking Status: Never smoker alcohol intake: never current occupational status: retired Travel in the last 8 weeks: None caffeine: Yes do you feel safe at home: Yes victim of physical abuse: No victim of emotional abuse: No victim of sexual abuse: No would you like helpful sources: No Have you lived/traveled outside [place] in past 30 days?: No Contact w/someone who lives/traveled outside US past 30 days?: No Exposure to someone with infectious disease in past 14 days?: No Do you have a fever (greater than 100.4 F or 38 C)?: No Have you tested positive for COVID-19: No Exposed to someone with COVID-19 in past 14 days?: No Do you have a sore throat?: No Do you have a cough?: No Do you have any weakness?: No Do you have any diarrhea?: No Are you experiencing any unusual bleeding?: No Do you have any muscle aches/pain?: No Do you have any abdominal pain?: No Are you experiencing loss of taste or smell?: No ROS Obtained: Yes Systems reviewed as appropriate & no additional complaints except as documented Physical Exam General General appearance: alert and in no apparent distress Head Head exam: atraumatic and normocephalic Eye Eye exam: Present PERRL, EOMI and other (No exophthalmos); Absent conjunctival redness ENT ENT exam: Present mucous membranes moist Neck Neck exam: Present normal inspection Chest Chest inspection: Present normal inspection and symmetric chest wall rise Respiratory Respiratory exam: Present normal lung sounds bilaterally; Absent respiratory distress Cardiovascular Cardiovascular exam: Present regular rate and normal rhythm Extremities Exam Extremities exam: Present normal inspection Neurological Exam Neurological exam: Present alert, oriented X3 and CN II-XII intact; Absent motor sensory deficit Psychiatric Psychiatric exam: Present normal affect Skin Skin exam: Present warm and dry Medical Decision Making Medical Records Screening: Per USPSTF and CDC recommendations, given the prevalence of disease in our region, it is our hospital?s policy to screen for HIV and viral Hepatitis for all patients aged 18 and over and those with ongoing risk factors. [place] Inquiry Pt receiving controlled substance: No Vital Signs: 05/10/24 09:40 05/10/24 09:45 05/10/24 10:00 Temperature 98.5 F Temperature Source Oral Pulse Rate 62 58 L Pulse Rate [Right] 64 Respiratory Rate 19 Blood Pressure 208/73 H 178/60 H Blood Pressure [Right Arm] 180/84 H Blood Pressure Mean [Right Arm] 116 Blood Pressure Source [Right Arm] Automatic Cuff 02 Sat by Pulse Oximetry 97 96 96 Oxygen Delivery Method Room Air Room Air Room Air 05/10/24 10:30 05/10/24 11:00 Temperature Temperature Source Pulse Rate 61 63 Pulse Rate [Right] Respiratory Rate Blood Pressure 140/59 L 153/52 H Blood Pressure [Right Arm] Blood Pressure Mean [Right Arm] Blood Pressure Source [Right Arm] 02 Sat by Pulse Oximetry 97 95 Oxygen Delivery Method Room Air Room Air Lab Data Lab Results 05/10/24 10:08: WBC 11.3 H, RBC 4.97, Hgb 14.7, Hct 43.9, MCV 88.3, MCH 29.6, MCHC 33.5, RDW 13.2, Plt Count 218, MPV 9.6, Neut % (Auto) 77.8, Lymph % (Auto) 13.6, Butler % (Auto) 6.6, Eos % (Auto) 1.2, Baso % (Auto) 0.5, Neut # (Auto) 8.8 H, Lymph # (Auto) 1.5, Butler # (Auto) 0.7, Eos # (Auto) 0.1, Baso # (Auto) 0.1, ESR 20, Sodium 139, Potassium 4.2, Chloride 104, Carbon Dioxide 30, Anion Gap 9.2, BUN 8, Creatinine 0.70, Estimated Creat Clear 44, Estimated GFR 80, Est GFR ( Amer) 96, Glucose 117 H, Calcium 9.4, Magnesium 2.1, Total Bilirubin 0.7, AST 39 H, ALT 39, Alkaline Phosphatase 92, Total Protein 6.8, Albumin 4.2, Globulin 2.6, Albumin/Globulin Ratio 1.6, HIV Ag/Ab Combo Qual Negative 05/10/24 10:08 05/10/24 10:08 Orders (Tests/Meds): ED MEDICATIONS Discontinued Medications Generic Name Dose Route Start Last Admin Trade Name Shad PRN Reason Stop Dose Admin Acetaminophen 1,000 mg 05/10/24 09:55 05/10/24 10:13 Acetaminophen 1,000mg/100ml Vial IV 05/10/24 09:56 1,000 mg ONCE ONE Administration Diphenhydramine HCl 25 mg 05/10/24 09:55 05/10/24 10:13 Diphenhydramine 50mg/Ml Vial IV 05/10/24 09:56 25 mg ONCE ONE Administration Lactated Ringer's 1,000 mls @ 999 mls/hr 05/10/24 09:59 05/10/24 10:13 Lactated Ringer's 1000 Ml Bag IV 05/10/24 10:59 999 mls/hr .Q1H1M ONE Administration Irbesartan 37.5 mg 05/10/24 09:58 05/10/24 10:11 Irbesartan 75mg Tablet PO 05/10/24 09:59 37.5 mg ONCE ONE Administration Prochlorperazine Edisylate 5 mg 05/10/24 09:55 05/10/24 10:13 Prochlorperazine 10mg/2ml Vial IV 05/10/24 09:56 5 mg ONCE ONE Administration ORDERS Category Date Time Status CT head/brain wo con Stat Cat Scan 05/10/24 09:55 Completed CBC w/Auto Diff [Complete Blood Count Auto Diff] Stat Lab 05/10/24 10:08 Completed CMP [Comprehensive Metabolic Panel] Stat Lab 05/10/24 10:08 Completed ESR [Erythrocyte Sedimentation Rate] Stat Lab 05/10/24 10:08 Completed HIV Combo Stat Lab 05/10/24 10:08 Completed Hepatitis C Ab Qual. W/ RFX Stat Lab 05/10/24 10:08 Received MG [Magnesium] Stat Lab 05/10/24 10:08 Completed Rapid PCR Covid and Flu A/B Stat Lab 05/10/24 10:08 Received Medical Decision Narrative: In summary patient is a 84-year-old female with past medical history described above who presents to the emergency department for evaluation of headache. Patient is hemodynamically stable nontoxic-appearing upon arrival, afebrile. Differential includes intracranial hemorrhage, primary headache, among others. Patient does not have any visual changes or temporal tenderness to suggest temporal arteritis, optic neuritis, acute angle-closure glaucoma. Patient's ocular pressure is 12. Workup will be conducted with hematologic labs, viral swab, CT head without IV contrast. Initial inventions include headache cocktail. Initial workup reviewed by me, hematologic labs are nonactionable, no significant JEREMIAH, no critical electrolyte abnormality. Noncontrasted CT scan informally interpreted by me no acute large intra-axial hemorrhage or midline shift. Formal read shows no acute findings with chronic microvascular disease. Upon repeat evaluation patient had significant improvement in symptoms, was ambulatory at bedside and is appropriate for outpatient management at this time. Critical Care Critical Care Time Critical Care Time: No
[2024-05-10 10:00] VITALS: BP 178/60; PULSE 58; O2SAT 96
[2024-05-10] MEDS: IRBESARTAN 75MG TABLET 37.5 MG PO (10:11)
[2024-05-10] MEDS: ACETAMINOPHEN 1,000MG/100ML VIAL 1000 MG IV (10:13)
[2024-05-10] MEDS: PROCHLORPERAZINE 10MG/2ML VIAL 5 MG IV (10:13)
[2024-05-10] MEDS: LACTATED RINGERS 1000ML 1,000 ML 999 ML IV (10:13)
[2024-05-10] MEDS: diphenhydrAMINE 50MG/ML VIAL 25 MG IV (10:13)
[2024-05-10 10:15] LABS: Coronavirus 19, PCR Not Detected (NotDetected); Influenza A, PCR Not Detected (NotDetected); Influenza B, PCR Not Detected (NotDetected)
[2024-05-10 10:17] LABS: Basophils # 0.1 K/mm3 (0-0.2); Basophils % 0.5 % (0.1-2.0); Eosinophils # 0.1 K/mm3 (0.0-0.4); Eosinophils % 1.2 % (0.1-12.0); Hematocrit 43.9 % (37.0-47.0); Hemoglobin 14.7 g/dL (12.2-16.2); Lymphocytes # 1.5 K/mm3 (0.7-4.5); Lymphocytes % 13.6 % (10-50); Mean Corpuscular HGB Conc 33.5 g/dL (31.8-35.4); Mean Corpuscular Hemoglobin 29.6 pg (27.0-31.2); Mean Corpuscular Volume 88.3 fl (81-99); Mean Platelet Volume 9.6 fl (7.4-10.4); Monocytes # 0.7 K/mm3 (0.1-1.0); Monocytes % 6.6 % (1.7-9.3); Neutrophils # 8.8 K/mm3 (1.8-7.8); Neutrophils % 77.8 % (37.0-80.0); Platelet Count 218 K/mm3 (142-424); Red Blood Count 4.97 M/mm3 (4.20-5.40); Red Cell Distribution Width 13.2 % (11.5-17.5); White Blood Count 11.3 K/mm3 (4.8-10.8)
[2024-05-10 10:20] LABS: Albumin Level 4.2 g/dl (3.5-5.0); Chloride 104 mmol/L (98-107); Potassium 4.2 mmoL/L (3.5-5.1); Sodium 139 mmol/L (136-145)
[2024-05-10 10:23] LABS: Alanine Aminotransferase 39 U/L (12-78); Albumin/Globulin Ratio 1.6 (1.1-1.8); Alkaline Phosphatase 92 U/L (38-126); Anion Gap 9.2 mEq/L (5-15); Aspartate Amino Transferase 39 U/L (14-36); Bilirubin,Total 0.7 mg/dl (0.2-1.3); Blood Urea Nitrogen 8 mg/dl (7-17); Calcium 9.4 mg/dl (8.4-10.2); Carbon Dioxide 30 mmol/L (22.0-30.0); Creatinine Clearance Estimated 44 mL/min (50-200); Estimated Glomerular Filt Rate 80 ml/min (>60); GFR (African American) 96 ML/MIN (>60); Globulin 2.6 g/dL (1.3-3.2); Glucose 117 mg/dl (74-100); Magnesium 2.1 mg/dl (1.6-2.3); Total Protein,Serum 6.8 g/dl (6.3-8.2)
[2024-05-10 10:30] VITALS: BP 140/59; PULSE 61; O2SAT 97
--- NOTE | 2024-05-10 10:38 | PC.NURSE ---
ROUNDED ON THE PT. THE PT VOICES THAT SHE DOES NOT NEED ANYTHING AT THIS TIME. CALL LIGHT IS WITHIN REACH OF THE PT.
[2024-05-10 10:43] LABS: Erythrocyte Sedimentation Rate 20 mm/hr (0-30)
--- NOTE | 2024-05-10 10:45 | PC.NURSE ---
PT RETURNED FROM CT
[2024-05-10 11:00] VITALS: BP 153/52; PULSE 63; O2SAT 95
[2024-05-10 11:21] LABS: HIV Combo NEGATIVE (Negative)
[2024-05-10 11:29] LABS: Hepatitis C Ab Qual. W/ RFX NEGATIVE (Negative)
[2024-05-10 11:42] VITALS: BP 153/52; PULSE 63; RESP 19; TEMP 36.9; O2SAT 95
== END 2024-05-10 11:42 | disposition home or self-care (01) ==
PROVIDERS: Emergency Provider Emergency Medicine; PCP Nurse Practitioner Family
DX: R51.9 Headache, unspecified (principal); R11.0 Nausea
CPT/HCPCS: 70450; 80053; 83735; 85025; 85651; 86803; 87389; 87636; 96361; 96374; 96375; 99284; J0131; J0780; J1200; J7120

== ENCOUNTER 2024-09-22 12:46 | Outpatient (CLI) | payer MEDICARE, SELFPAY ==
--- NOTE | 2024-09-22 12:50 | MM_ITS ---
PROCEDURE INFORMATION: Exam: MG Bilateral Screening 3D Mammography Exam date and time: 09/22/2024 12:57 PM Age: 84 years old Clinical indication: Screening examination TECHNIQUE: Imaging protocol: Bilateral Screening tomosynthesis and 2D mammography including computer-aided detection (CAD) when performed. COMPARISON: 1. MG MM DIG SCREENING MAMM BI W/CAD 09/16/2023 3:50 PM 2. MG MM DIG SCREENING MAMM BI W/CAD 08/23/2022 9:39 AM FINDINGS: MAMMOGRAPHY: Breast composition: There are scattered areas of fibroglandular density. Mass: No suspicious masses. Architectural distortion: None. Calcifications: No suspicious calcifications. Asymmetric density: None. Skin thickening: None. Axillary adenopathy: None. IMPRESSION: No mammographic evidence of malignancy. Annual screening is recommended unless otherwise clinically indicated. ASSESSMENT: BI-RADS Category 1: Negative.
== END 2024-09-22 23:59 | disposition home or self-care (01) ==
LOC: RAD 12:47
PROVIDERS: PCP Nurse Practitioner Family; Visit Provider Nurse Practitioner Family
DX: Z12.31 Encounter for screening mammogram for malignant neoplasm of breast (principal); R92.323 Mammographic fibroglandular density, bilateral breasts
CPT/HCPCS: 77063; 77067

== ENCOUNTER 2024-11-09 15:07 | Emergency (ER) | payer MEDICARE, SELFPAY ==
[2024-11-09] VITALS (8 sets, daily range): BP systolic 122–154; BP diastolic 58–79; PULSE 50–89; RESP 16–17; TEMP 36.6; O2SAT 94–99; BMI 33.0
--- NOTE | 2024-11-09 15:19 | XR_ITS ---
FINAL REPORT CLINICAL HISTORY: fall COMPARISON: None FINDINGS: LEFT FOREARM 2 views of the left forearm were obtained. There is no acute fracture or dislocation. The joints are intact. There are no soft tissue abnormalities. IMPRESSION: No acute process. Reviewed, Interpreted and Dictated by Rafaela Sierra MD Transcribed by Marla Breaux Authenticated and . [facility]
--- NOTE | 2024-11-09 15:19 | XR_ITS ---
FINAL REPORT CLINICAL HISTORY: fall COMPARISON: None FINDINGS: LEFT WRIST 2 views demonstrate no acute fracture or dislocation. There are moderate degenerative changes, greatest of the first carpometacarpal joint. There is an old ulnar styloid process fracture. Osteopenia is noted. No acute soft tissue abnormality is seen. IMPRESSION: Degenerative changes without acute bony abnormality. Reviewed, Interpreted and Dictated by Rafaela Sierra MD Transcribed by Marla Breaux Authenticated and [facility]
--- NOTE | 2024-11-09 15:19 | XR_ITS ---
FINAL REPORT CLINICAL HISTORY: fall, left pinky pain and no ROM COMPARISON: None FINDINGS: LEFT HAND Three views of the left hand were obtained. There is dislocation of the fifth MCP joint. There is no fracture. Osteopenia is noted. IMPRESSION: Dislocation fifth MCP joint. Reviewed, Interpreted and Dictated by Rafaela Sierra MD Transcribed by Marla Breaux Authenticated and [facility]
[2024-11-09] MEDS: APAP/HYDROCODONE 325MG/7.5MG TAB 1 TAB PO (15:31)
--- OUTSIDE RECORDS SUMMARY | 2024-11-09 15:34 | XMS_ITS | Clinical Summary ---
[facility] Address [address] [place] [address] Care Team Providers Care Security System Administrator Name Role Phone Alecia Knight MANDO Primary Care Provid er Social History Tobacco Use Types Packs/Day Years Used Date Smoking Tobacco: Never Assessed Abuse Screen Answer Date Recorded Unsafe at Home or Work/School Not on file Feels Threatened by Someone? Not on file 01/2023 Does Anyone Keep You from Co ntacting Others or Doint Things Outside the Home? Not on file 01/09/2023 Physical Sign of Abuse Present Not on file 1 Housing Stability Answer Date Recorded Current Living Arrangements Not on file 12/30 Potentially Unsafe Housing Conditions Not on favian e 01/09/2023 Family and Community Support Answer Roderick e Recorded Help with Day-to-Day Activities Not on file 01/09/2023 Lonely or Isolated Not on file 01/09/2023 Employment Answer Date Recorded Do you want help finding or keeping work or a go b? Not on file 01/09/2023 Disabilities Answer Date Recorded Concentrating, Remembering, or Making Decisions Difficulty Not on file 01/09/2023 Doing Errands Independently Difficulty Not on fi le 01/09/2023 Education Answer Date Recorded Help with school or training? Not on file Preferred Language Not on file 01/09/2023 Comments Unknown Sex and Gender Information Value Date Recorded Sex Assigned at Not on file Legal Sex Female 8:56 AM EDT Gender Identity Not on file Sexual Orientation Not on file Plan of Treatment Health Maintenance Due Date Last Done Comments ANNUAL PHYSICAL 1940 DXA SCAN 1939 TDAP/TD VACCINES (1 - Tdap) 1958 Pneumococcal Vaccine 50+ (1 of 1 - PCV) 1989 ZOSTER VACCINE (1 of 2) 1989 RSV Vaccine - Adults (1 - 1-dose 75+ series) 4 COVID-19 Vaccine (1 - 2023-25 season) 2023 INFLUENZA VACCINE 12/30/2024 Insurance MEDICARE A & B Member Subscriber Plan / Payer (Ef fective 2003-Present) Name:Kanwal Ann Member ID:[id number] Relation to Subscriber:Self Name:Kanwal Ann Subscriber ID:[id number] Payer ID:[id number] Group ID:Not on file Type:Not on file Address: [facility] [id number] [employer] Care Teams Security System Administrator Relationship Specialty Start Date End Date Alecia Knight APRN [address] [facility] [address] [place] [id number] PCP - General Family Medicine 02/13/16
--- NOTE | 2024-11-09 15:53 | HMH.EDGENADL ---
Discharge Plan Disposition Patient Disposition: Home, Self-Care Condition: Good Prescriptions Prescriptions: New cephalexin 500 mg capsule 500 mg PO Q6H 7 Days Qty: 28 0RF No Action losartan 25 mg tablet 25 mg PO DAILY Ocuvite Tablet 1 tab PO DAILY rosuvastatin 20 mg tablet 20 mg PO DAILY Patient Comments: TAKE 1 TABLET BY MOUTH DAILY aspirin 81 mg Capsule 81 mg PO DAILY Referrals Follow up/Referrals: Subhash Harris DO [Staff Physician, Orthopedics] - See instructions Alecia Knight APRN [Primary Care Provider, Medical] - See instructions Activity Restrictions/Add. Instructions Additional Instructions/Restrictions: Take the antibiotics as prescribed for [address] Harris's office tomorrow to get appointment scheduled this week. You need to keep the splint dry at all times. Return to the emergency department for any acute or worsening symptoms Clinical Impressions Clinical Impression: Laceration Open finger dislocation Qualifiers: Encounter type: initial encounter Qualified Code(s): S63.259A - Unspecified dislocation of unspecified finger, initial encounter Instructions Patient Instructions: DI for Laceration Repair Print Language Print Language: Nepali Discharge ED Provider: Martha Doherty General Adult HPI <Radha García APRN - Last Filed: 11/09/24 17:20> General Chief complaint: Wound/Laceration Stated complaint: AO 11/09/24 14:00 L hand Pinky Finger; Time Seen by Provider: 11/09/24 15:11 Mode of Arrival: Ambulatory Source of Information: Patient Description of Symptoms (Recalled from ER Triage Doc. by RN): patient states about 2o mins ago she believes she tripped landing on concrete, she caught herself with her left hand landed on her left side, did hit her left side of head denies LOC. she has pain in her left hand and a laceratio under her left pinky does take a 81mg of aspirin daily History of Present Illness HPI narrative: patient is an 84-year-old female who presents to the ED after a fall that occurred prior to arrival. Patient states she was walking at her door and tripped on a gravel, landing on her left hand. Patient states she is unable to extend her left pinky due to pain. Related Data Home Medications ?Medication ?Instructions ?Recorded ?Confirmed losartan 25 mg tablet 25 mg PO DAILY HTN 01/23/22 11/10/24 vitamin A-vitamin C-vit E-min 1 tab PO DAILY eyes 01/23/22 11/10/24 tablet aspirin 81 mg capsule 81 mg PO DAILY heart healthly 02/01/22 11/10/24 rosuvastatin 20 mg tablet 20 mg PO DAILY 05/10/24 11/10/24 Previous Rx's ?Medication ?Instructions ?Recorded cephalexin 500 mg capsule 500 mg PO Q6H 7 days #28 caps 11/09/24 Allergies Allergy/AdvReac Type Severity Reaction Status Date / Time No Known Allergies Allergy Verified 11/10/24 14:21 PFS <Radha García APRN - Last Filed: 11/09/24 17:20> [facility] Disclaimer: The information contained in this section may have been updated after the patient was seen, as this information can be updated by other users. Medical History Uses hearing aid Migraine History of cataract Allergies Edema Hyperlipidemia Hypertension Surgical History Hx of cataract surgery History of cholecystectomy Family History Mother Family history of breast cancer Father Family history of brain cancer Social History Smoking Status: Never smoker alcohol intake: never current occupational status: retired Travel in the last 8 weeks?: None caffeine: Yes do you feel safe at home: Yes victim of physical abuse: No victim of emotional abuse: No victim of sexual abuse: No would you like helpful sources: No <Radha García APRN - Last Filed: 11/09/24 17:20> ROS Obtained: Yes Systems reviewed as appropriate & no additional complaints except as documented Physical Exam <Radha García APRN - Last Filed: 11/09/24 17:20> General General appearance: alert Eye Eye exam: Present PERRL and EOMI Neck Neck exam: Present normal inspection and full ROM Respiratory Respiratory exam: Present normal lung sounds bilaterally and respiratory distress Cardiovascular Cardiovascular exam: Present regular rate Back Exam Back exam: Present normal inspection and full ROM Neurological Exam Neurological exam: Present alert and oriented X3 Skin Skin exam: Present warm and dry Medical Decision Making <MANDO Berry Last Filed: 11/09/24 17:20> Medical Records Screening: Per USPSTF and CDC recommendations, given the prevalence of disease in our region, it is our hospital?s policy to screen for HIV and viral Hepatitis for all patients aged 18 and over and those with ongoing risk factors. [place] Pt receiving controlled substance: No Vital Signs: 11/09/24 15:15 11/09/24 15:19 11/09/24 15:30 Temperature 97.8 F Temperature Source Oral Pulse Rate 80 Pulse Rate [Right Radial] 89 Respiratory Rate 17 Blood Pressure 143/68 H Blood Pressure [Right Arm] 147/79 H Blood Pressure Mean 93 Blood Pressure Mean [Right Arm] 101 Blood Pressure Source Blood Pressure Source [Right Arm] Automatic Cuff Blood Pressure Position Blood Pressure Position [Right Arm] Sitting 02 Sat by Pulse Oximetry 97 95 Oxygen Delivery Method Room Air 11/09/24 15:45 11/09/24 16:29 11/09/24 17:01 Temperature Temperature Source Pulse Rate 68 50 L 63 Pulse Rate [Right Radial] Respiratory Rate Blood Pressure 122/58 L 150/69 H Blood Pressure [Right Arm] Blood Pressure Mean Blood Pressure Mean [Right Arm] Blood Pressure Source Blood Pressure Source [Right Arm] Blood Pressure Position Blood Pressure Position [Right Arm] 02 Sat by Pulse Oximetry 96 96 94 L Oxygen Delivery Method 11/09/24 17:30 11/09/24 18:26 Temperature 97.8 F Temperature Source Oral Pulse Rate 73 74 Pulse Rate [Right Radial] Respiratory Rate 16 Blood Pressure 154/70 H 152/62 H Blood Pressure [Right Arm] Blood Pressure Mean Blood Pressure Mean [Right Arm] Blood Pressure Source Automatic Cuff Blood Pressure Source [Right Arm] Blood Pressure Position Sitting Blood Pressure Position [Right Arm] 02 Sat by Pulse Oximetry 97 Oxygen Delivery Method Room Air Orders (Tests/Meds): ED MEDICATIONS Discontinued Medications Generic Name Dose Route Start Last Admin Trade Name Freq PRN Reason Stop Dose Admin Hydrocodone Bitart/Acetaminophen 1 tab 11/09/24 15:22 11/09/24 15:31 Apap/Hydrocodone 325mg/7.5mg Tab PO 11/09/24 15:23 1 tab ONCE ONE Administration Cefazolin Sodium 2 gm/ Sodium 100 mls @ 200 mls/hr 11/09/24 15:57 11/09/24 16:34 Chloride IV 11/09/24 16:26 200 mls/hr ONCE ONE Administration Lidocaine HCl 10 ml 11/09/24 17:01 11/09/24 17:50 Lidocaine 1% 10ml Mdv SUBCUT 11/09/24 17:02 10 ml ONCE ONE Administration Sodium Chloride 10 ml 11/09/24 15:57 Sodium Chloride 0.9% 10ml Flush Syringe IV 12/09/24 15:56 NEEDED PRN Maintain IV Site Tetanus/Reduced Diphtheria/Acell Pertussis 0.5 ml 11/09/24 15:57 11/09/24 16:33 Tet/Diphth/Pert-Adult 0.5ml Syringe IM 11/09/24 15:58 0.5 ml .ONCE ONE Administration ORDERS Category Date Time Status Forearm XR left 2 views [XR forearm LT 2V] Stat Exams 11/09/24 15:19 Completed Hand XR left minimum 3 views [XR hand LT min 3V] Stat Exams 11/09/24 15:19 Completed Hand XR left minimum 3 views [XR hand LT min 3V] Stat Exams 11/09/24 17:29 Completed Hand XR left minimum 3 views [XR hand LT min 3V] Stat Exams 11/09/24 17:34 Completed Wrist XR left 2 views [XR wrist LT 2V] Stat Exams 11/09/24 15:19 Completed Medical Decision Narrative: In summary, patient is an 84-year-old female who presents to the ED after a fall that occurred prior to arrival. Patient states she was walking at her door and tripped on a gravel, landing on her left hand. Patient states she is unable to extend her left pinky due to pain. She has lacerations on her hand, upon initial exam unable to tell where the lacerations are at due to dried blood and decreased ROM. Will soak in Hibiclens and proceed with imaging. Patient symptomatically managed with hydrocodone tablet at this time. Care transferred to attending. <Martha Doherty, - Last Filed: 11/12/24 01:05> Vital Signs: 11/09/24 15:15 11/09/24 15:19 11/09/24 15:30 Temperature 97.8 F Temperature Source Oral Pulse Rate 80 Pulse Rate [Right Radial] 89 Respiratory Rate 17 Blood Pressure 143/68 H Blood Pressure [Right Arm] 147/79 H Blood Pressure Mean 93 Blood Pressure Mean [Right Arm] 101 Blood Pressure Source Blood Pressure Source [Right Arm] Automatic Cuff Blood Pressure Position Blood Pressure Position [Right Arm] Sitting 02 Sat by Pulse Oximetry 97 95 Oxygen Delivery Method Room Air 11/09/24 15:45 11/09/24 16:29 11/09/24 17:01 Temperature Temperature Source Pulse Rate 68 50 L 63 Pulse Rate [Right Radial] Respiratory Rate Blood Pressure 122/58 L 150/69 H Blood Pressure [Right Arm] Blood Pressure Mean Blood Pressure Mean [Right Arm] Blood Pressure Source Blood Pressure Source [Right Arm] Blood Pressure Position Blood Pressure Position [Right Arm] 02 Sat by Pulse Oximetry 96 96 94 L Oxygen Delivery Method 11/09/24 17:30 11/09/24 18:26 Temperature 97.8 F Temperature Source Oral Pulse Rate 73 74 Pulse Rate [Right Radial] Respiratory Rate 16 Blood Pressure 154/70 H 152/62 H Blood Pressure [Right Arm] Blood Pressure Mean Blood Pressure Mean [Right Arm] Blood Pressure Source Automatic Cuff Blood Pressure Source [Right Arm] Blood Pressure Position Sitting Blood Pressure Position [Right Arm] 02 Sat by Pulse Oximetry 97 Oxygen Delivery Method Room Air Lab Data Lab results reviewed: Yes I reviewed the patient's lab results. Orders (Tests/Meds): ED MEDICATIONS Discontinued Medications Generic Name Dose Route Start Last Admin Trade Name Freq PRN Reason Stop Dose Admin Hydrocodone Bitart/Acetaminophen 1 tab 11/09/24 15:22 11/09/24 15:31 Apap/Hydrocodone 325mg/7.5mg Tab PO 11/09/24 15:23 1 tab ONCE ONE Administration Cefazolin Sodium 2 gm/ Sodium 100 mls @ 200 mls/hr 11/09/24 15:57 11/09/24 16:34 Chloride IV 11/09/24 16:26 200 mls/hr ONCE ONE Administration Lidocaine HCl 10 ml 11/09/24 17:01 11/09/24 17:50 Lidocaine 1% 10ml Mdv SUBCUT 11/09/24 17:02 10 ml ONCE ONE Administration Sodium Chloride 10 ml 11/09/24 15:57 Sodium Chloride 0.9% 10ml Flush Syringe IV 12/09/24 15:56 NEEDED PRN Maintain IV Site Tetanus/Reduced Diphtheria/Acell Pertussis 0.5 ml 11/09/24 15:57 11/09/24 16:33 Tet/Diphth/Pert-Adult 0.5ml Syringe IM 11/09/24 15:58 0.5 ml .ONCE ONE Administration ORDERS Category Date Time Status Forearm XR left 2 views [XR forearm LT 2V] Stat Exams 11/09/24 15:19 Completed Hand XR left minimum 3 views [XR hand LT min 3V] Stat Exams 11/09/24 15:19 Completed Hand XR left minimum 3 views [XR hand LT min 3V] Stat Exams 11/09/24 17:29 Completed Hand XR left minimum 3 views [XR hand LT min 3V] Stat Exams 11/09/24 17:34 Completed Wrist XR left 2 views [XR wrist LT 2V] Stat Exams 11/09/24 15:19 Completed Medical Decision Narrative: In summary, patient is an 84-year-old female who presents to the ED after a fall that occurred prior to arrival. Patient states she was walking at her door and tripped on a gravel, landing on her left hand. Patient states she is unable to extend her left pinky due to pain. She has lacerations on her hand, upon initial exam unable to tell where the lacerations are at due to dried blood and decreased ROM. Will soak in Hibiclens and proceed with imaging. Patient symptomatically managed with hydrocodone tablet at this time. Care transferred to attending. Differential includes but not limited to laceration, fracture, dislocation, sprain, strain, open fracture, amongst others. Patient's x-ray was reviewed and interpreted by myself and showed fifth MCP dislocation. Patient did have an open laceration in the webspace between the 4th and 5th digit therefore has an open dislocation. I discussed the case with Dr. Harris, the orthopedic doctor here at [facility] who recommended reduction and laceration repair. Patient's finger was reduced at the bedside after a digital block was performed. X-ray showed successful reduction. Patient's laceration was repaired with Ethilon stitches after the wound was extensively irrigated. Patient was placed into a ulnar gutter splint and patient was sent with outpatient orthopedic follow-up. Patient's tetanus was updated in the emergency department, patient was given Ancef in the emergency department and patient was sent with outpatient antibiotics. Patient was advised to follow-up with the orthopedic team in the next 2 days. Patient was otherwise discharged home in stable condition. Procedures <Martha Doherty, - Last Filed: 11/12/24 01:05> Laceration Laceration 1: Site: hand Side (If applicable): left Size (cm): 3 Description: irregular Depth: involves subcutaneous layer Local Anesthetic: lidocaine 1% Amount of anesthesia used (mL): 5 Pre-repair: wound explored, irrigated extensively and deep structures intact Skin layer closed with: other (ethilon) Size (cm): 4-0 Number of sutures: 8 Technique: simple, interrupted Subcutaneous layer closed with: chromic gut Number of sutures: 5 Technique: simple, interrupted Nerve Block Nerve Block 1: Local Anesthetic: lidocaine 1% Amount of anesthesia used (mL): 10 Side: Left Nerve Blocks: other (digital nerve block) Procedure Successful: Yes Patient Tolerated Procedure: well Complications: none Orthopedic Joint Reduction Joint #1: Time Out Performed: Yes Side: left Joint Reduction Location: finger (5th MCP) Analgesia: nerve block Local Anesthesia: lidocaine 1% Amount of anesthesic used (mL): 10 Post-reduction neuro exam: intact Post-reduction vascular: intact Post Reduction X-Ray Obtained: Yes Post Reduction X-Ray Results: reduced Splint Applied: Yes Patient Tolerated Procedure: well Orthopedic Splinting/Casting Injury #1: Side: left Upper Extremity Injury Location: finger Upper Extremity Immobilizer: ulnar gutter Post Cast/Splinting Neuro Status: intact Post Cast/Splinting Vasc Status: intact Critical Care <Radha García APRN - Last Filed: 11/09/24 17:20> Critical Care Time Critical Care Time: No
--- NOTE | 2024-11-09 16:03 | PC.NURSE ---
is speaking with
[2024-11-09] MEDS: TET/DIPHTH/PERT-ADULT 0.5ML SYRINGE 0.5 ML IM (16:33)
--- NOTE | 2024-11-09 17:29 | XR_ITS ---
PROCEDURE INFORMATION: Exam: XR Left Hand Exam date and time: 11/09/2024 5:37 PM Age: 84 years old Clinical indication: Other: S/P reduction TECHNIQUE: Imaging protocol: Radiologic exam of the left hand. Views: 3 or more views. COMPARISON: CR XR HAND LT MIN 3V 11/09/2024 3:25 PM FINDINGS: Bones/joints: Improved alignment at the 5th metacarpophalangeal joint status post reduction of prior dislocation. Base of the proximal phalanx of the 5th digit remains slightly subluxed and angulated in a dorsal and ulnar fashion. This appearance could be secondary to incomplete reduction or underlying ligamentous or tendon injury. Small avulsion fracture fragment is present adjacent to the head of the 4th metacarpal. Nondisplaced mildly impacted fracture involving the neck of the distal shaft of the 4th metacarpal. 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 Remainder of the metacarpophalangeal joints are normally aligned. Proximal and distal interphalangeal joints are normally aligned. Distal aspect of the radius and ulna are intact. Soft tissues: Soft tissue swelling is present along the dorsal aspect of the hand. IMPRESSION: 1. Improved alignment of the previously seen dislocation at the 5th metacarpophalangeal joint status post interval reduction. The proximal phalanx of the 5th digit remains slightly subluxed in a dorsal and ulnar fashion on one view. Findings may be secondary to positioning or potential incomplete reduction. Underlying ligamentous or tendon injury may contribute to the findings. Orthopedic consultation is recommended. 2. Nondisplaced mildly impacted fracture involving the neck of the distal shaft of the 4th metacarpal. Small avulsion fracture fragment along the margin of the head of the 4th metacarpal. 3. Overlying soft tissue swelling.
--- NOTE | 2024-11-09 17:34 | XR_ITS ---
PROCEDURE INFORMATION: Exam: XR Left Hand Exam date and time: 11/09/2024 5:40 PM Age: 84 years old Clinical indication: Other: Post reduction TECHNIQUE: Imaging protocol: Radiologic exam of the left hand. Views: 3 or more views. COMPARISON: CR XR HAND LT MIN 3V 11/09/2024 5:37 PM FINDINGS: Bones/joints: Improved alignment at the 5th metacarpophalangeal joint status post reduction of prior dislocation. AP and oblique view is submitted. No lateral view submitted which limits evaluation for true alignment. Probable small avulsion fracture fragment is present along the ulnar margin of the head of the 4th metacarpal. Nondisplaced mildly impacted fracture involving the neck of the distal shaft of the 4th metacarpal. 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 Mild negative ulnar variance. Mild soft tissue swelling superficial to the distal ulna. Soft tissues: Soft tissue swelling overlying the 4th and 5th metacarpophalangeal joint. IMPRESSION: 1. Improved alignment at the 5th metacarpophalangeal joint status post reduction of prior dislocation. Base of the proximal phalanx of the 5th digit remains slightly subluxed on one view. Small fracture fragment interposed between the head of the 4th and 5th metacarpal. Nondisplaced mildly impacted fracture involving the neck of the distal shaft of the 4th metacarpal. 2. Orthopedic consultation is recommended.
[2024-11-09] MEDS: LIDOCAINE 1% 10ML MDV 10 ML SUBCUT (17:50)
== END 2024-11-09 18:32 | disposition home or self-care (01) ==
PROVIDERS: Emergency Provider Student in an Organized Health Care Education/Training Program; PCP Nurse Practitioner Family
DX: S63.267A Dislocation of metacarpophalangeal joint of left little finger, initial encounter (principal); S61.412A Laceration without foreign body of left hand, initial encounter; W01.10XA Fall on same level from slipping, tripping and stumbling with subsequent striking against unspecified object, initial encounter
CPT/HCPCS: 12002; 26700; 73090; 73100; 73130; 90471; 90715; 96365; 99284; J0690

== ENCOUNTER 2024-11-16 12:52 | Outpatient (CLI) | payer MEDICARE, SELFPAY ==
--- NOTE | 2024-11-16 12:53 | XR_ITS ---
FINAL REPORT CLINICAL HISTORY: left pinky dislocation COMPARISON: 11/09/2024 FINDINGS: LEFT HAND Three views demonstrate that a cast has been placed over the ulnar aspect of the left hand obscuring bony detail. The visualized joint spaces are normally aligned. 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 The soft tissues are unremarkable. IMPRESSION: Interval placement of a cast over the ulnar aspect of the left hand obscuring bony detail in the 4th and 5th fingers. 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 Reviewed, Interpreted and Dictated by Reno Wadsworth MD Transcribed by Chantell Batres Authenticated and . [facility]
--- OUTSIDE RECORDS SUMMARY | 2024-11-16 12:57 | XMS_ITS | Clinical Summary ---
[facility] Address [address] [place] [address] Care Team Providers Care Apprenticeship Consultant Name Role Phone Alecia Knight MANDO Primary [...] Payer (Ef fective 2003-Present) Name:Kanwal Ann Member ID:[id number] Relation to Subscriber:Self Name:Kanwal Ann Subscriber ID:[id number] Payer ID:[id number] Group ID:Not on file Type:Not on file Address: [facility] [id number] [employer] Care Teams Apprenticeship Consultant Relationship Specialty Start Date End Date Alecia Knight APRN [address] [facility] [address] [place] [id number] PCP - General Family Medicine 02/13/16
== END 2024-11-16 23:59 | disposition home or self-care (01) ==
LOC: RAD 12:53
PROVIDERS: Visit Provider Physician Assistant
DX: S63.257A Unspecified dislocation of left little finger, initial encounter (principal); M18.9 Osteoarthritis of first carpometacarpal joint, unspecified
CPT/HCPCS: 73130

== ENCOUNTER 2024-11-23 11:17 | Outpatient (CLI) | payer MEDICARE, SELFPAY ==
--- NOTE | 2024-11-23 11:22 | XR_ITS ---
FINAL REPORT CLINICAL HISTORY: fractured pinkie COMPARISON: 11/16/2024 FINDINGS: LEFT HAND The plaster cast obscures detail. No displaced fracture is visualized. There is no new abnormality compared to prior exam. IMPRESSION: No new abnormality compared to prior exam. Reviewed, Interpreted and Dictated by Corine Abbott MD Transcribed by Claudia Cabello Authenticated and [facility]
--- OUTSIDE RECORDS SUMMARY | 2024-11-23 12:00 | XMS_ITS | Clinical Summary ---
[facility] Address [address] [place] [address] Care Team Providers Care Database Programmer Name Role Phone Alecia Knight MANDO Primary [...] Payer (Ef fective 2003-Present) Name:Kanwal Ann Member ID:[id number] Relation to Subscriber:Self Name:Kanwal Ann Subscriber ID:[id number] Payer ID:[id number] Group ID:Not on file Type:Not on file Address: [facility] [id number] [employer] Care Teams Database Programmer Relationship Specialty Start Date End Date Alecia Knight APRN [address] [facility] [address] [place] [id number] PCP - General Family Medicine 02/13/16
== END 2024-11-23 23:59 | disposition home or self-care (01) ==
LOC: RAD 11:18
PROVIDERS: PCP Nurse Practitioner Family; Visit Provider Physician Assistant
DX: S62.607A Fracture of unspecified phalanx of left little finger, initial encounter for closed fracture (principal); X58.XXXA Exposure to other specified factors, initial encounter
CPT/HCPCS: 73130

== ENCOUNTER 2024-12-29 11:00 | Outpatient (RCR) | payer MEDICARE, SELFPAY ==
--- NOTE | 2024-12-17 11:58 | HMH.OTOPEV ---
OT Evaluation Rehab OT Outpatient Eval Start: 12/17/24 11:03 Freq: Status: Active Protocol: Document 12/17/24 11:32 SAL (Rec: 12/17/24 11:58 SAL [id number]) E-signed By Elvie Doyle, OT Outpatient Therapy Subjective History Subjective History Pt is a 84 yr old female being seen for limited ROM in L hand. Pt reported they fell on November 09, 2024 and dislocated the pinky finger. Pt reported they had mx casting and stiches placed. Pt reported they were yisel splinted to ring finger on L hand. Pt reported that the stitches were removed aprx 2 wks ago and released from splint on Saturday. Pt reported they have little pain at times, but will get a sharp pain when performing a task that requires gripping. Pt reported they have been back to driving and have little impact on driving. 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 Pt presented with swelling amongst all fingers and hand on L UE and swelling present at L wrist. Pt was able to PROM in full ROM, but limited ROM with AROM during assessment. Due to functional limitations in occupational performance and measurements, pt would benefit from skilled OT services and interventions to assess functional limitations in occupational performance and improve optimal occupational performance and bring back or close to PLOF. New diagnosis of No cancer in past 12 months? Chief Complaint Pain,Stiff,Swelling,Weakness,Decreased [employer] Member Strength, Decreased Coordination Symptom Type Sharp,Shooting Symptoms Relieved By Rest/Positioning,OTC Meds Prior Functional None Limitations Current Functional Lifting,Housework,Dressing,Recreation Activity Limitations Symptom Description Intermittent,Activity Dependent Level of pain today 0 (0-10) Pain scale - at its 0 best (0-10) Pain scale - at its 6 worst (0-10) Wrist/Hand Eval Palpation Tenderness/Visual Exam Wrist swelling left Wrist/Hand Palpation Tenderness,Muscle Guarding Findings erythema hand/finger left exam standard Wrist/Hand Palpation Pt presented with swelling in L UE at wrist and fingers Overall Comment Finger Range of Motion Left Ring Finger Finger ROM Muscle Tone Limitations Finger 40 Metacarpophalangeal Flexion Active Range of Motion (degrees) Finger 50 Metacarpophalangeal Flexion Passive Range of Motion ( degrees) Finger Proximal 30 Interphalangeal Flexion Active Range (degrees) Finger Proximal 45 Interphalangeal Flexion Passive Range (degrees) Finger Distal 10 Interphalangeal Flexion Active Range of Motion (degrees) Finger Distal 25 Interphalangeal Flexion Passive Range Motion ( degrees) Left Little Finger Finger ROM Muscle Weakness,Pain Limitations Finger 40 Metacarpophalangeal Flexion Active Range of Motion (degrees) Finger 50 Metacarpophalangeal Flexion Passive Range of Motion ( degrees) Finger Proximal 20 Interphalangeal Flexion Active Range (degrees) Finger Proximal 25 Interphalangeal Flexion Passive Range (degrees) Finger Distal 0 Interphalangeal Flexion Active Range of Motion (degrees) Finger Distal 10 Interphalangeal Flexion Passive Range Motion ( degrees) Wrist Manual Muscle Testing Left Wrist Extension 3- Fair- Strength Grade Wrist Flexion 3- Fair- Strength Grade Hand/Finger Manual Muscle testing Left Ring Finger Finger Flexion 3- Fair- Strength Grade Finger Extension 3- Fair- Strength Grade Finger Abduction 3- Fair- Strength Grade Finger Adduction 3- Fair- Strength Grade Left Little Finger Finger Flexion 3- Fair- Strength Grade Finger Extension 3- Fair- Strength Grade Finger Abduction 3- Fair- Strength Grade Finger Adduction 3- Fair- Strength Grade [employer] Member/Pinch Strength Right [employer] Member Strength 30 Measurement (lbs) Left [employer] Member Strength 0 Measurement (lbs) QuickDASH Activities Please rate your ability to do the following activities in the last week by selecting the number below the appropriate response. 1. Open a tight or Moderate difficulty new jar. 2. Do heavy Moderate difficulty manager solution (e. g., wash varela, floors). 3. Carry a shopping Moderate difficulty bag or briefcase. 4. Wash your back. Moderate difficulty 5. Use a knife to Moderate difficulty cut food. 6. Recreational Moderate difficulty activities in which you take some force or impact through your arm, shoulder, or hand (e.g., golf, hammering, tennis, etc.). 7. During the past Not at all week, to what extent has your arm, shoulder or hand problem interfered with your normal social activities with family, friends , neighbors or groups? 8. During the past Slightly limited week, were you limited in your work or other regular daily activites as a result of your arm, shoulder or hand problem? 9. Arm, shoulder or Mild hand pain. 10. Tingling (pins None and needles) in your arm, shoulder or hand. 11. During the past No difficulty week, how much difficulty have you had sleeping because of the pain in your arm, shoulder or hand? Quick DASH 25 Work Module (optional) The following questions ask about the impact of your arm, shoulder or hand problem on your ability to work (including homemaking if that is your main work role). Please indicate what Organist your job/work is: Do you work? Yes 1. Using your usual Moderate difficulty technique for your work? 2. Doing your usual Moderate difficulty work because of arm, shoulder or hand pain? 3. Doing your work Moderate difficulty as well as you would like? 4. Spending your Mild difficulty usual amount of time doing your work? Quick Dash Work 11 Module Score Sports/Performing Arts Module (optional) The following questions relate to the impact of your arm, shoulder or hand problem on playing your musical instrument or sport or both. If you play more than one sport or instrument (or play both), please answer with respect to the activity which is most important to you. Please indicate the organ sport or instrument which is most important to you: Do you play a sport Yes or instrument? 1. Using your usual Moderate difficulty technique for playing your instrument or sport? 2. Playing your Moderate difficulty musical instrument or sport because of arm, shoulder or hand pain? 3. Playing your Moderate difficulty musical instrument or sport as well as you would like? 4. Spending your Mild difficulty usual amount of time practicing or playing your instrument or sport? Quick Dash Sports/ 11 Performing Art Score OT Patient Goals OT Patient Goals OT Short Term 1. Pt will increase L little finger and ring finger MCP Patient Goals flexion to 50 degrees. 2. Pt will increase L little finger PIP flexion to 30 degrees, ring finger PIP flexion to 40 degrees. 3. Pt will increase L little finger DIP flexion to 10 degrees, ring finger DIP flexion to 20 degrees. 4. Pt will increase MMT at wrist and fingers to 3+/5. 5. Pt will increase activity tolerance to completion of light hand strengthening and exercises for 15 mins before rest. 6. Pt will improve QuickDash Activities score to 20 or below, Work to 9 or below, and Art/Sports to 9 or below . 7. Pt will improve subjective pain to 4/10 at worst. 8. Pt will be IND in HEP of theraputty. 9. Pt will improve L hand senior game advisor strength to 10 lbs. OT Brush Stainer Patient 1. Pt will increase L little finger and ring finger MCP Goals flexion to 60 degrees. 2. Pt will increase L little finger PIP flexion to 40 degrees, ring finger PIP flexion to 50 degrees. 3. Pt will increase L little finger DIP flexion to 20 degrees, ring finger DIP flexion to 30 degrees. 4. Pt will increase MMT at wrist and fingers to 4-/5. 5. Pt will increase activity tolerance to completion of light hand strengthening and exercises for 20 mins before rest. 6. Pt will improve QuickDash Activities score to 16 or below, Work to 6 or below, and Art/Sports to 6 or below . 7. Pt will improve subjective pain to 2/10 at worst. 8. Pt will be IND in HEP of advanced hand exercises. 9. Pt will improve L hand senior game advisor strength to 20 lbs. OT Outpatient Assessment Impairments Problems/Impairments Palpation Tenderness,Impaired Range of Motion,Impaired Strength,Impaired Endurance,Impaired Lifting,Impaired Dressing,Impaired Shower/Bathing,Impaired Household Care,Impaired Recreational Activities,Impaired Work Activities,Subjective C/O Pain,Impaired Self Care/Self Management Prognosis Rehab Potential Good Clinical Impression Consistent with Yes Diagnosis Outpatient Therapy Plan of Care Treatment Plan May Include Therapeutic Exercise Yes Including Home Exercise Program Manual Therapy Yes Techniques Neuromuscular Re- Yes education Therapeutic Yes Activities to Return to Previous Functional/Work Level ADL/Self Care Yes Education Thermal Modalities Yes Electrical Yes Stimulation Ultrasound/ Yes Phonophoresis Iontophoresis Yes Parrafin Yes Orthotics/Bracing/ Yes Splinting Group Therapy for Yes Medicare Eval/Re-Eval Yes Frequency Times per week 2 Duration Number of Weeks 8 Addendums This patient is a No candidate for social or vocational rehab ? Patient/Guardian Yes verbally acknowledges understanding of treatment program and consents to further treatment? Patient/Guardian Yes verbally acknowledges understanding of diagnosis, prognosis and goals for treatment? Eval Complexity OT Charge 15277 - Moderate Complexity Shoulder/Elbow Eval Shoulder Objective Measurements Elbow Objective Measurements PHYSICIAN CERTIFICATION: I certify the specified therapy services for Kanwal Ann are required, authorized, and reviewed every 30 days.
== END 2024-12-29 23:59 | disposition home or self-care (01) ==
LOC: OT 11:00
PROVIDERS: Visit Provider Physician Assistant
DX: S63.255D Unspecified dislocation of left ring finger, subsequent encounter (principal); S61.209D Unspecified open wound of unspecified finger without damage to nail, subsequent encounter; W19.XXXD Unspecified fall, subsequent encounter
CPT/HCPCS: 97035; 97110; 97140; 97166

== ENCOUNTER 2025-01-20 15:00 | Outpatient (RCR) | payer MEDICARE, SELFPAY ==
--- NOTE | 2025-02-03 11:44 | HMH.RHREAS ---
Rehab Reassessment Rehab OP Re-assessment Start: 01/01/25 14:07 Freq: Status: Discharge Protocol: Document 01/18/25 16:32 [place] (Rec: 01/18/25 16:35 RODOLFOARCHIE [id number]) E-signed By Savannah Chen, OT Rehab Re-assessment Subjective Subjective My fingers are feeling better. Objective Objective Notes Patient is an 84-year-old female referred to skilled OT services due to limited ROM in the left hand. Patient reported sustaining a fall on November 09, 2024, resulting in a dislocated left pinky finger. She underwent multiple castings and had stitches placed, followed by yisel taping of the left pinky to the ring finger. Stitches were removed approximately two weeks ago, and she was released from the splint on Saturday. Patient reported minimal pain at rest, though experiences intermittent sharp pain during tasks requiring gripping. She stated she has resumed driving with minimal impact. 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 Upon evaluation, visible swelling was noted throughout the left hand, digits, and wrist. Passive ROM was within normal limits, though active ROM was limited. Due to decreased AROM, pain, and swelling impacting functional use of the left hand, the patient would benefit from continued skilled OT services to improve strength, ROM, and overall occupational performance, with the goal of returning to or near prior level of function (PLOF). Assessment Progress Assessment Progressing as Expected Assessment Notes Patient has participated in skilled OT services twice weekly for the past 30 days, focusing on increasing AROM of left upper extremity digits, reducing pa in, and improving strength. The patient has demonstrated consistent progress toward established goals and has resumed playing the organ weekly at temple. She recently purchased a paraffin wax bath and reports using it regularly after temple with positive results. Patient expresses motivation to continue OT for an additional 30 days to further enhance functional use of the left hand before transitioning to an independent home exercise program (HEP). Re-assessment on 01/18/25 AROM of L UE MCP flex Little digit:45 Ring digit: 45 AROM of L UE PIP flex Little digit: 35 Ring digit:45 AROM of L UE DIP flex Little digit:15 Ring digit:25 MMT wrist 3+ to 4-/5 Quick Dash: 25; work/activities <9 5/10 pain at worst L hand packing and final assembly supervisor: 10# OT Patient Goals OT Short Term 1. Pt will increase L little finger and ring finger MCP Patient Goals flexion to 50 degrees. 2. Pt will increase L little finger PIP flexion to 40 degrees, ring finger PIP flexion to 50 degrees. 3. Pt will increase L little finger DIP flexion to 10 degrees, ring finger DIP flexion to 20 degrees. 4. Pt will increase MMT at wrist and fingers to 4/5. 5. Pt will increase activity tolerance to completion of light hand strengthening and exercises for 15 mins before rest. 6. Pt will improve QuickDash Activities score to 20 or below, Work to 9 or below, and Art/Sports to 9 or below . 7. Pt will improve subjective pain to 4/10 at worst. 9. Pt will improve L hand packing and final assembly supervisor strength to 15 lbs. OT Radiology Clerk Patient 1. Pt will increase L little finger and ring finger MCP Goals flexion to 60 degrees. 2. Pt will increase L little finger PIP flexion to 50 degrees, ring finger PIP flexion to 60 degrees. 3. Pt will increase L little finger DIP flexion to 20 degrees, ring finger DIP flexion to 30 degrees. 4. Pt will increase MMT at wrist and fingers to 4/5. 5. Pt will increase activity tolerance to completion of light hand strengthening and exercises for 20 mins before rest. 6. Pt will improve QuickDash Activities score to 16 or below, Work to 6 or below, and Art/Sports to 6 or below . 7. Pt will improve subjective pain to 2/10 at worst. 8. Pt will be IND in HEP of advanced hand exercises. 9. Pt will improve L hand packing and final assembly supervisor strength to 20 lbs. Plan Plan Continue Plan of Care in order to return to prior level of function/within functional limitations Frequency of Therapy 2x/wk Duration of Therapy 4 weeks Therapeutic Exercise Yes Including Home Exercise Program Manual Therapy Yes Techniques Therapeutic Yes Activities to Return to Previous Functional/Work Level ADL/Self Care Yes Education Thermal Modalities Yes Electrical Yes Stimulation Ultrasound/ Yes Phonophoresis Iontophoresis Yes PHYSICIAN CERTIFICATION: I certify the specified therapy services for Kanwal Ann are required, authorized, and reviewed every 30 days.
== END 2025-01-20 23:59 | disposition home or self-care (01) ==
LOC: OT 15:00
PROVIDERS: Visit Provider Physician Assistant
DX: Z98.890 Other specified postprocedural states (principal); Z47.89 Encounter for other orthopedic aftercare
CPT/HCPCS: 97018; 97035; 97140

== ENCOUNTER 2025-02-10 15:00 | Outpatient (RCR) | payer MEDICARE, SELFPAY | END 2025-02-10 23:59 | disposition home or self-care (01) | LOC: OT 15:00 | PROVIDERS: Visit Provider Physician Assistant | DX: S63.259D Unspecified dislocation of unspecified finger, subsequent encounter (principal); S61.209D Unspecified open wound of unspecified finger without damage to nail, subsequent encounter; X58.XXXD Exposure to other specified factors, subsequent encounter | CPT/HCPCS: 97035; 97110; 97140 ==